=== PATIENT | male | born 1990 | race Hispanic/Latino ===

== ENCOUNTER 2016-09-03 20:18 | Emergency (ER) | payer SELFPAY ==
[2016-09-03 20:43] VITALS: RESP 20; TEMP 98.5
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
[2016-09-03 21:16] LABS: BASO % 0.3 % (0.0-2.0); EOS % 0.4 % (0.0-4.0); HEMATOCRIT 40.6 % (35.0-51.0); LYMPH # 0.8 K/uL (1.0-4.3); LYMPH % 14.9 % (20.0-40.0); MEAN CELL VOLUME 91.5 fL (80.0-94.0); MEAN CORPUSCULAR HEMOGLOBIN 31.2 pg (27.0-31.0); MEAN CORPUSCULAR HGB CONC 34.1 g/dL (33.0-37.0); MEAN PLATELET VOLUME 8.6 fL (7.2-11.7); MONO # 0.5 K/uL (0.0-0.8); MONO % 9.9 % (0.0-10.0); NRBC % 0.1 % (0.0-2.0); RED CELL DISTRIBUTION WIDTH 15.2 % (11.5-14.5); WHITE BLOOD COUNT 5.5 K/uL (4.8-10.8)
[2016-09-03 21:46] LABS: RBC URINE 6 /hpf (0-3); URINE BILIRUBIN 2+ (NEGATIVE); URINE BLOOD NEGATIVE (NEGATIVE); URINE COLOR Amber (YELLOW); URINE GLUCOSE (UA) NORMAL (Normal); URINE KETONE 1+ mg/dL (NEGATIVE); URINE LEUKOCYTE ESTERASE NEG Leu/uL (Negative); URINE PROTEIN 2+ mg/dL (NEGATIVE); WBC URINE 3 /hpf (0-5)
[2016-09-03 22:04] LABS: CHLORIDE 93 mmol/L (98-107)
[2016-09-03 22:05] LABS: POTASSIUM 3.9 mmol/L (3.6-5.2); SODIUM 132 mmol/L (132-148)
[2016-09-03 22:07] LABS: AST/SGOT 92 U/L (17-59); BILIRUBIN,TOTAL 2.3 mg/dL (0.2-1.3); CARBON DIOXIDE 24 mmol/L (22-30); GFR AFRICAN-AMERICAN > 60
[2016-09-03 22:08] LABS: ALB/GLOB RATIO 1.3 (1.0-2.1); ALCOHOL SERUM < 10 mg/dl (0-10); ALKALINE PHOSPHATASE 78 U/L (38-126); ALT/SGPT 77 U/L (21-72); BLOOD UREA NITROGEN 6 mg/dL (9-20); CALCIUM 9.5 mg/dl (8.6-10.4); GLUCOSE,RANDOM 91 mg/dL (75-110); TOTAL PROTEIN 7.4 g/dL (6.3-8.3)
[2016-09-03] MEDS ORDERED: Silver Sulfadiazine 1% Cream (20 gm) TOP STA (22:24)
[2016-09-03 22:58] VITALS: BP 118/80; PULSE 88
--- NOTE | 2016-09-04 13:44 | CARD ---
APPROVED REPORT EKG Measurement Heart [id number] <Conclusion> Normal sinus rhythm Normal ECG
[2016-09-08 19:55] VITALS: O2SAT 95
== END 2016-09-03 23:15 | disposition home or self-care (01) ==
LOC: C.ER 20:18
DX: R56.9 Unspecified convulsions (principal); F10.20 Alcohol dependence, uncomplicated; T23.071A Burn of unspecified degree of right wrist, initial encounter; X08.8XXA Exposure to other specified smoke, fire and flames, initial encounter; Y93.G2 Activity, grilling and smoking food
CPT/HCPCS: 80053; 81001; 85025; 93005; 99285; G0480

== ENCOUNTER 2017-11-07 19:20 | Emergency (ER) | payer SELFPAY ==
[2017-11-07 19:42] VITALS: TEMP 97.9
[2017-11-07] MEDS ORDERED: Sodium Chloride 0.9% 1,000 ML IV ONE (20:42)
[2017-11-07] MEDS ORDERED: Fosphenytoin 1,000 MG in Sodium Chloride 0.9% 50 ML IV STA (20:42)
[2017-11-07] MEDS ORDERED: Tdap Vaccine 0.5 ml Vial (10-64 yrs) IM ONE ×2 (20:43→20:57)
--- NOTE | 2017-11-07 20:48 | C.PDOC ---
History Of Present Illness 27 year old male with PMHx of seizures presents to the ED for evaluation of a seizure tonight. Patient had seizure last year but is not currently taking medications. Patient was walking with his father when he suddenly felt abdominal pain, later had generalized seizure and fell forward. Patient denies fever, chills, nausea, vomit, weakness, numbness. Chief Complaint (Nursing): Seizure History Per: Patient, Family History/Exam Limitations: no limitations Recent Seizure Activity Began: Just Before Arrival Number Of Seizures: One Quality Of Seizure: Generalized Precipitating Factor(s): None Associated Symptoms: Injury As A Result Of Seizure Activity Post-ictal Period: No Severity: None Recent travel outside of the [place]: No Additional History Per: Patient Past Medical History Reviewed: Historical Data, Nursing Documentation, Vital Signs Vital Signs: Last Vital Signs Temp 97.9 F 11/07/17 19:31 Pulse 102 H 11/07/17 19:31 Resp 16 11/07/17 19:31 BP 140/79 11/07/17 19:31 Pulse Ox 97 11/07/17 19:31 - Medical History PMH: Seizures Surgical History: No Surg Hx - [facility] Procedures TETANUS TOXOID ADMINIST (03/29/14) Family History: States: Unknown Family Hx (no pertinent family history) - Social History Hx Tobacco Use: Yes Hx Alcohol Use: No Hx Substance Use: No - Immunization History Hx Tetanus Toxoid Vaccination: No Hx Influenza Vaccination: No Review Of Systems Constitutional: Negative for: Fever, Chills Eyes: Negative for: Vision Change Cardiovascular: Negative for: Chest Pain Respiratory: Negative for: Shortness of Breath Gastrointestinal: Negative for: Nausea, Vomiting, Abdominal Pain Skin: Negative for: Rash Neurological: Positive for: Seizures. Negative for: Weakness, Numbness Physical Exam - Physical Exam Appears: Non-toxic, No Acute Distress Skin: Normal Color, Warm, Dry Head: Atraumatic, Normacephalic, Laceration (right forehead) Eye(s): bilateral: Normal Inspection Nose: No Epistaxis, No Septal Hematoma, Other (laceration nasal area) Oral Mucosa: Moist Lips: Laceration (upper lip below right nares) Neck: Normal ROM, Supple Chest: Symmetrical Cardiovascular: Rhythm Regular Respiratory: Normal Breath Sounds, No Rales, No Rhonchi, No Wheezing Gastrointestinal/Abdominal: Soft, No Tenderness, No Guarding, No Rebound Extremity: Normal ROM, No Tenderness, No Swelling Neurological/Psych: Oriented x3, Normal Speech, Normal Cognition Gait: Steady ED Course And Treatment - Laboratory Results Result Diagrams: 11/07/17 20:46 11/07/17 20:46 ECG: Interpreted By Me, Viewed By Me ECG Rhythm: Sinus Rhythm ECG Interpretation: No Acute Changes Interpretation Of ECG: NSR, Right axis, borderline tracings. Rate From EC O2 Sat by Pulse Oximetry: 97 (ON RA) Pulse Ox Interpretation: Normal - CT Scan/US CT head Other Rad Studies (CT/US): Read By Radiologist, Radiology Report Reviewed CT/US Interpretation: EXAM: CT Head Without IV contrast. CLINICAL HISTORY: Seizure, fall on face, abrasions and swelling to the forehead. TECHNIQUE: Axial computed tomography images of the head/brain without intravenous contrast. COMPARISON: None provided. FINDINGS: BRAIN. No acute intraparenchymal hemorrhage. No mass lesion. No CT evidence for acute territorial infarct. No midline shift or extra-axial collections. VENTRICLES: No hydrocephalus. ORBITS: The orbits are unremarkable. SINUSES AND MASTOIDS: The paranasal sinuses and mastoid air cells are clear. BONES: No fracture. IMPRESSION: No acute intracranial abnormality. . Electronically signed on Nov 07, 2017 10:48:36 PM EDT by: Apollo Potts M.D., Certified by ABR CT facials Other Rad Studies (CT/US): Read By Radiologist, Radiology Report Reviewed CT/US Interpretation: EXAM: CT Maxillofacial Without IV contrast. CLINICAL HISTORY: Seizure, fall on face, abrasions to forehead nose and rt cheek. TECHNIQUE: Axial computed tomography images of the face without intravenous contrast. Sagittal and coronal reformatted images were generated. CONTRAST: Without. COMPARISON: None provided. FINDINGS: BONES: No acute fracture or aggressive appearing osseous lesion. The mandible is intact. SOFT TISSUES: there is soft tissue swelling on the right side of the forehead. SINUSES: multiple retention cysts in the maxillary sinuses. ORBITS: The orbits are normal. No retrobulbar hematoma or mass. IMPRESSION: soft tissue swelling right side of forehead. . Electronically signed on Nov 07, 2017 10:52:15 PM EDT by: Apollo Potts M.D., Certified by [facility]BR. Laceration - Laceration Repair nasal bridge Wound Length (In cm): 1 Description Of Wound: Linear Wound Cleansed With: Betadine Anesthesia: Lidocaine 1% Wound Examination: Irrigated With Saline Wound Closure: Suture (x2) Wound Complexity: Simple (6-o) Medical Decision Making Medical Decision Making: Plan: * CT head * CT facial * EKG * Labs * Tetanus * Cerebryx * IV fluids Disposition Counseled Patient/Family Regarding: Diagnosis - Disposition Referrals: [facility] [Outside] Disposition: HOME/ ROUTINE Disposition Time: 23:38 Condition: STABLE Additional Instructions: stichies removal in 5 days Prescriptions: Amoxicillin [Amoxil 500 mg Cap] 500 mg PO TID #20 cap chlordiazePOXIDE [Chlordiazepoxide HCl] 25 mg PO Q6 #14 cap Instructions: Seizures, Adult (DC), Stitches Removal, Laceration Repair With Stitches (DC), Alcohol Withdrawal (DC) Forms: [facility] (Uzbek) - POA Present On Arrival: None - Clinical Impression Clinical Impression: Seizure disorder, Facial laceration, Alcohol withdrawal seizure - Scribe Statement The provider has reviewed the documentation as recorded by the Scribe Rivas Alvarado All medical record entries made by the Scribe were at my direction and personally dictated by me. I have reviewed the chart and agree that the record accurately reflects my personal performance of the history, physical exam, medical decision making, and the department course for this patient. I have also personally directed, reviewed, and agree with the discharge instructions and disposition.
[2017-11-07 20:51] LABS: BASO % 0.2 % (0.0-2.0); EOS % 0.2 % (0.0-4.0); HEMOGLOBIN 14.4 g/dL (12.0-18.0); LYMPH # 0.6 K/uL (1.0-4.3); LYMPH % 11.8 % (20.0-40.0); MEAN CELL VOLUME 91.2 fL (80.0-94.0); MEAN CORPUSCULAR HEMOGLOBIN 30.9 pg (27.0-31.0); MEAN CORPUSCULAR HGB CONC 33.9 g/dL (33.0-37.0); MEAN PLATELET VOLUME 8.9 fL (7.2-11.7); MONO # 0.4 K/uL (0.0-0.8); MONO % 7.7 % (0.0-10.0); NEUT # 4.3 K/uL (1.8-7.0); NEUT % 80.1 % (50.0-75.0); NRBC % 0.1 % (0.0-2.0); RBC 4.67 Mil/uL (4.40-5.90); RED CELL DISTRIBUTION WIDTH 14.2 % (11.5-14.5); WHITE BLOOD COUNT 5.4 K/uL (4.8-10.8)
[2017-11-07] MEDS ORDERED: Multivitamin (MVI) 10 ML, Thiamine 100 MG, Folic Acid 1 MG in Sodium Chloride 0.9% 1,00... IV ONE (20:59)
[2017-11-07 21:15] LABS: BLOOD UREA NITROGEN 6 mg/dL (9-20); CALCIUM 9.5 mg/dl (8.6-10.4); GFR NON-AFRICAN AMERICAN > 60
[2017-11-07 21:16] LABS: ALB/GLOB RATIO 1.6 (1.0-2.1); ALBUMIN 5.3 g/dL (3.5-5.0); ALT/SGPT 73 U/L (21-72); AST/SGOT 151 U/L (17-59)
[2017-11-07] MEDS ORDERED: Lidocaine Hydrochloride 5 ML INJ ONE (23:13)
[2017-11-07] MEDS ORDERED: Bacitracin 500 Units/gm Oint Foilpak UD ONE (23:29)
[2017-11-08 00:26] VITALS: BP 129/78; PULSE 78; RESP 18; O2SAT 98
--- NOTE | 2017-11-08 08:09 | CT ---
Date of service: 11/07/2017 PROCEDURE: CT HEAD WITHOUT CONTRAST. HISTORY: seizure/ injury COMPARISON: None available. TECHNIQUE: Axial computed tomography images were obtained through the head/brain without intravenous contrast. Radiation dose: Total exam DLP = 872 mGy-cm. This CT exam was performed using one or more of the following dose reduction techniques: Automated exposure control, adjustment of the mA and/or kV according to patient size, and/or use of iterative reconstruction technique. FINDINGS: HEMORRHAGE: No intracranial hemorrhage. Small focal area of increased attenuation seen within the right frontal lobe anteriorly on series 4, image 20 is likely related to streak attenuation. BRAIN: No mass effect or edema. No atrophy or chronic microvascular ischemic changes. VENTRICLES: Unremarkable. No hydrocephalus. CALVARIUM: Unremarkable. PARANASAL SINUSES: Unremarkable as visualized. No significant inflammatory changes. MASTOID AIR CELLS: Unremarkable as visualized. No inflammatory changes. OTHER FINDINGS: Right frontal soft tissue swelling. Streak artifact in the posterior fossa limits evaluation. IMPRESSION: No acute intracranial abnormality. Right frontal soft tissue swelling. If symptoms persists, consider correlation with MRI. These findings were preliminarily reported on 11/07/2017 at 10:[address] Apollo Potts from [employer].
--- NOTE | 2017-11-08 11:44 | CT ---
Date of service: 11/07/2017 PROCEDURE: CT MAXILLOFACIAL BONES WITHOUT CONTRAST HISTORY: seixure/ injury COMPARISON: None available. TECHNIQUE: Contiguous axial CT images of the maxillofacial bones were obtained. Coronal and sagittal reformats were generated. Radiation dose: Total exam DLP = 903.46 mGy-cm. This CT exam was performed using one or more of the following dose reduction techniques: Automated exposure control, adjustment of the mA and/or kV according to patient size, and/or use of iterative reconstruction technique. FINDINGS: NASAL BONES: Unremarkable. ORBITS: Unremarkable. PARANASAL SINUSES/ MASTOIDS: Clear. MAXILLA: Unremarkable. MANDIBLE/ TEMPOROMANDIBULAR JOINTS: Unremarkable. SKULL BASE: Unremarkable. TEMPORAL BONES: Middle ears and mastoid grossly unremarkable. OTHER FINDINGS: Right supraorbital soft tissue injury. Adjacent osseous structures including orbit and frontal sinus are unremarkable. IMPRESSION: Soft tissue swelling (right frontal and periorbital region) without acute articular or osseous abnormality.. Concordant results (preliminary interpretation) provided by [facility]. Procedure Completed: 22:07 Preliminary Report: Dictated and Authenticated: 22:52. Final Interpretation: 11:42. November 07, 2017
--- NOTE | 2017-11-08 12:24 | RAD ---
Date of service: 11/07/2017 PROCEDURE: CHEST RADIOGRAPH, 1 VIEW HISTORY: Seizure COMPARISON: None available. FINDINGS: LUNGS: Clear. PLEURA: No pneumothorax or pleural fluid seen. CARDIOVASCULAR: Normal. OSSEOUS STRUCTURES: No significant abnormalities. VISUALIZED UPPER ABDOMEN: Normal. OTHER FINDINGS: None. IMPRESSION: No active disease.
--- NOTE | 2017-11-08 23:11 | CARD ---
APPROVED REPORT Date of service: 11/07/2017 EKG Measurement Heart [id number] <Conclusion> Normal sinus rhythm Rightward axis Borderline ECG
== END 2017-11-08 00:28 | disposition home or self-care (01) ==
LOC: C.ER 19:20
DX: G40.909 Epilepsy, unspecified, not intractable, without status epilepticus (principal); S01.21XA Laceration without foreign body of nose, initial encounter; S01.81XA Laceration without foreign body of other part of head, initial encounter; S01.511A Laceration without foreign body of lip, initial encounter; W18.30XA Fall on same level, unspecified, initial encounter; Y93.01 Activity, walking, marching and hiking; F10.239 Alcohol dependence with withdrawal, unspecified
CPT/HCPCS: 12011; 70450; 70480; 71045; 80053; 82948; 85025; 90471; 90715; 93005; 96365; 96366; 96367; 99285; G0480; J3411; J7030; Q2009

== ENCOUNTER 2017-11-09 09:04 | Emergency (ER) | payer MEDICAID, OTHER ==
[2017-11-09 09:12] VITALS: BP 137/88; PULSE 99; RESP 17; TEMP 98.1; O2SAT 98
--- NOTE | 2017-11-09 09:23 | C.PDOC ---
History Of Present Illness 27 y/o male presents to ED requesting suture removal. Pt states he had an episode of seizure, fell, and subsequently inured his nose 2 days ago. Pt had sutures placed to his nose bridge. Denies fever, redness, or any other complaints at this time. Time Seen by Provider: 11/09/17 09:13 Chief Complaint (Nursing): Suture/Staple Removal History Per: Patient History/Exam Limitations: no limitations Onset/Duration Of Symptoms: Days Ago Current Symptoms Are (Timing): Still Present Recent travel outside of the [place]: No Additional History Per: Patient Past Medical History Reviewed: Historical Data, Nursing Documentation, Vital Signs Vital Signs: Last Vital Signs Temp 98.1 F 11/09/17 09:09 Pulse 99 H 11/09/17 09:09 Resp 17 11/09/17 09:09 BP 137/88 11/09/17 09:09 Pulse Ox 98 11/09/17 09:09 - Medical History PMH: Seizures - [facility] Procedures TETANUS TOXOID ADMINIST (03/29/14) Family History: States: Unknown Family Hx (no pertinent family history) - Social History Hx Tobacco Use: Yes Hx Alcohol Use: Yes Hx Substance Use: No - Immunization History Hx Tetanus Toxoid Vaccination: Yes (11/2017) Hx Influenza Vaccination: No Hx Pneumococcal Vaccination: No Review Of Systems Except As Marked, All Systems Reviewed And Found Negative. Constitutional: Negative for: Fever, Chills Skin: Positive for: Other (suture removal). Negative for: Bruising Neurological: Negative for: Weakness, Numbness Physical Exam - Physical Exam Appears: Non-toxic, No Acute Distress, Other (EtOH on breath, argumentative) Skin: Warm, Dry, Other (abrasion to right side of face) Head: Atraumatic, Normacephalic Eye(s): bilateral: Normal Inspection Nose: No Tenderness, Other (intact sutures to nasal bridge, not suitable for removal at this time) Oral Mucosa: Moist Neurological/Psych: Oriented x3, Normal Speech ED Course And Treatment O2 Sat by Pulse Oximetry: 98 (RA) Pulse Ox Interpretation: Normal Medical Decision Making Medical Decision Making: Pt was argumentative, stating he "read on google" that facial sutures can be removed in 3 days and is insisting to be removed. I instructed patient that sutures are not ready to be removed at this time. Patient was instructed to return on 11/14/17 for suture removal. Disposition - Disposition Disposition: HOME/ ROUTINE Disposition Time: 09:25 Condition: STABLE Additional Instructions: Follow up with your PMD within 1-2 days. Take all medications as instructed. Return to ED if feel worse. Return to ED on 11/14/17 for suture removal. Prescriptions: Bacitracin OINT 1 applic TP TID #45 g Instructions: Wound Care (DC) Forms: [employer] (Maltese) - Clinical Impression Clinical Impression: Visit for wound check - PA / SPECIAL EFFECTS SPECIALIST / Resident Statement MD/DO has reviewed & agrees with the documentation as recorded. - Scribe Statement The provider has reviewed the documentation as recorded by the Scribe KP All medical record entries made by the Scribe were at my direction and personally dictated by me. I have reviewed the chart and agree that the record accurately reflects my personal performance of the history, physical exam, medical decision making, and the department course for this patient. I have also personally directed, reviewed, and agree with the discharge instructions and disposition.
== END 2017-11-09 09:35 | disposition home or self-care (01) ==
LOC: C.ER 09:04
DX: Z48.817 Encounter for surgical aftercare following surgery on the skin and subcutaneous tissue (principal)

== ENCOUNTER 2017-11-14 09:44 | Emergency (ER) | payer MEDICAID ==
[2017-11-14 10:09] VITALS: BP 128/86; PULSE 87; RESP 16; TEMP 98.1; O2SAT 98
--- NOTE | 2017-11-14 10:19 | C.PDOC ---
History Of Present Illness 27 year old male presents to the ED to have sutures x2 on the bridge of the nose removed. Patient states he visited the ED to have the sutures removed a few days ago and was told they were not yet ready for removal. Denies fever, vomiting, numbness, redness to the area, and any other associated symptoms. Time Seen by Provider: 11/14/17 09:59 Chief Complaint (Nursing): Suture/Staple Removal History Per: Patient History/Exam Limitations: no limitations Onset/Duration Of Symptoms: Other (sutures x2. ) Past Medical History Reviewed: Historical Data, Nursing Documentation, Vital Signs Vital Signs: Last Vital Signs Temp 98.1 F 11/14/17 09:58 Pulse 87 11/14/17 09:58 Resp 16 11/14/17 09:58 BP 128/86 11/14/17 09:58 Pulse Ox 98 11/14/17 09:58 - Medical History PMH: Seizures - [facility] Procedures TETANUS TOXOID ADMINIST (03/29/14) Family History: States: Unknown Family Hx (no pertinent family history) - Social History Hx Tobacco Use: Yes Hx Alcohol Use: Yes Hx Substance Use: No - Immunization History Hx Tetanus Toxoid Vaccination: Yes (11/2017) Hx Influenza Vaccination: No Hx Pneumococcal Vaccination: No Review Of Systems Except As Marked, All Systems Reviewed And Found Negative. Constitutional: Negative for: Fever ENT: Positive for: Other (sutures x2 on the bridge of the nose. ) Gastrointestinal: Negative for: Nausea, Vomiting Skin: Negative for: Other (redness.) Neurological: Negative for: Weakness, Numbness, Incoordination Physical Exam - Physical Exam Appears: Non-toxic Skin: Normal Color, Warm, Dry, Other (scab and abrasions throughout the face. ) Head: Atraumatic, Normacephalic Eye(s): bilateral: Normal Inspection Nose: Normal, No Discharge, No Deformity, No Tenderness, Other (bridge of the nose: sutures x2. scab. ) Neck: Normal ROM, Supple Cardiovascular: Rhythm Regular Neurological/Psych: Oriented x3, Normal Speech, Normal Motor, Normal Sensation Gait: Steady ED Course And Treatment O2 Sat by Pulse Oximetry: 98 (RA) Pulse Ox Interpretation: Normal Medical Decision Making Medical Decision Making: Update/Progress: Sutures x2 were removed. Patient stable for discharge home. Disposition - Disposition Disposition: HOME/ ROUTINE Disposition Time: 10:30 Condition: GOOD Additional Instructions: KONRAD ANDERSON, thank you for letting us take care of you today. Your provider was Milagros Kraus MD and you were treated for STITCHES REMOVAL. The emergency medical care you received today was directed at your acute symptoms. If you were prescribed any medication, please fill it and take as directed. It may take several days for your symptoms to resolve. Return to the Emergency Department if your symptoms worsen, do not improve, or if you have any other problems. Please contact your doctor or call one of the physicians/clinics you have been referred to that are listed on the Patient Visit Information form that is included in your discharge packet. Bring any paperwork you were given at discharge with you along with any medications you are taking to your follow up visit. Our treatment cannot replace ongoing medical care by a primary care provider outside of the emergency department. Thank you for allowing the [facility] team to be part of your care today. If you had an X-Ray or CT scan: A Radiologist will review the ED reading if any change in treatment is needed we will contact you. If you had a blood, urine, or wound culture: It will take several days for the results, if any change in treatment is needed we will contact you. If you had an STI test: It will take 48 hours for the results. Please call after 1 week if you have not heard back. Instructions: Stitches Removal Forms: [employer] (German) - Clinical Impression Clinical Impression: Removal of suture - Scribe Statement The provider has reviewed the documentation as recorded by the Scribe (Ashlee Andrew) Provider Attestation: All medical record entries made by the Scribe were at my direction and personally dictated by me. I have reviewed the chart and agree that the record accurately reflects my personal performance of the history, physical exam, medical decision making, and the department course for this patient. I have also personally directed, reviewed, and agree with the discharge instructions and disposition.
== END 2017-11-14 10:30 | disposition home or self-care (01) ==
LOC: C.ER 09:44
DX: Z48.02 Encounter for removal of sutures (principal)